=== PATIENT | female | born 1945 | race Caucasian/White ===

== ENCOUNTER 2016-07-30 07:36 | Day surgery (SDC) | payer MEDICARE, OTHER ==
--- NOTE | ~2016-07-30 | EGD ---
EGD REPORT [facility] [address] [place]. [id number] NAME: SANDRINE KABA : [birth year] [place]US : [place] [facility] [place] [id number] AGE: 71 ADM/REG DATE : 07/30/16 MR#: [id number] REPORT SERV DATE: 07/30/16 DICTATED BY: TOM TANNER DATE: 07/30/16 REPORT STATUS : Draft TRANSCRIBED BY: [facility] DATE: 07/30/16 Endoscopy Center Patient Name: Sandrine Kaba Date of : 1945 Attending MD: TOM TANNER MD Procedure Date No Time: 07/30/2016 Procedure: Colonoscopy Indications: High risk colon cancer surveillance: Personal history of non-advanced adenoma; last exam 2013. Patient Profile: Informed consent was obtained from the patient by me prior to the procedure. Risks, benefits, and alternatives were discussed including the risk of bleeding, perforation, infection, reaction to medicine, missed lesion, and cardiopulmonary complications. Medicines: Monitored Anesthesia Care Complications: No immediate complications. Procedure: Pre-Anesthesia Assessment: - ASA Grade Assessment: II - A patient with mild systemic disease. After I obtained informed consent, the scope was passed under direct vision. Throughout the procedure, the patient's blood pressure, pulse, and oxygen saturations were monitored continuously. The CF [id number] was introduced through the anus and advanced to the cecum, identified by appendiceal orifice and ileocecal valve. The colon was long, tortuous, and redundant. The colonoscope was slowly withdrawn with careful examination all mucosal surfaces including specific attention around flexures and tip deflection behind folds; retroflexion performed in rectum. The colonoscopy was performed without difficulty. The patient tolerated the procedure well. The quality of the bowel preparation was adequate. The ileocecal valve, appendiceal orifice and rectum were photographed. CO2 utilized. Findings: A sessile polyp was found in the rectum. The polyp was 5 mm in size. The polyp was removed with a cold biopsy forceps. Resection and retrieval were complete. Internal hemorrhoids were found, and they were mild. A few small-mouthed diverticula were found in the sigmoid colon. Impression: - One 5 mm polyp in the rectum. Resected and retrieved. - Internal hemorrhoids. - Diverticulosis in the sigmoid colon. EGD REPORT [address] [address] NAME: SANDRINE KABA : [birth year] STATUS : REG [facility]#: [id number] AGE: 71 ADM/REG DATE : 07/30/16 MR#: [id number] REPORT SERV DATE: 07/30/16 DICTATED BY: TOM TANNER DATE: 07/30/16 REPORT STATUS : Draft [facility]IB[facility] BY: [facility] DATE: 07/30/16 Recommendation: - Patient has a contact number available for emergencies. The signs and symptoms of potential delayed complications were discussed with the patient. Return to normal activities tomorrow. Written discharge instructions were provided to the patient. - Regular diet. - Continue present medications. - Await pathology results. - Repeat colonoscopy for surveillance based on pathology results. Procedure Code(s): --- Professional --- 31103, Colonoscopy, flexible, proximal to splenic flexure; with biopsy, single or multiple Diagnosis Code(s): --- Professional --- K62.1, Rectal polyp K64.8, Other hemorrhoids K57.30, Diverticulosis of large intestine without perforation or abscess without bleeding Z86.010, Personal history of colonic polyps CPT copyright 2013 [employer]. All rights reserved. The codes documented in this report are preliminary and upon creative project manager review may be revised to meet current compliance requirements. TOM TANNER MD 07/30/2016 9:51 AM This report has been signed electronically. Number of Addenda: 0 Note Initiated On: 07/30/2016 8:59 AM Scope Withdrawal Time 0 hours 11 minutes 34 seconds [id number] [id number]
[~2016-07-30 07:36] MED LIST: ACYCLOVIR OINTMENT TOP; ASAB PO; BONIVA150 MG PO; CADUET10 MG/40 M PO; COZ50 PO; KLONO5 PO; LIPITOR20 PO; MIRALAX POWDER1 PKT PO; MULTIPLE VIT PO; PROBIOTIC PO; [UNRECOGNIZED DRUG - REMARK] PO
== END 2016-07-30 23:59 | disposition home health service (06) ==
LOC: DMU 07:36
PROVIDERS: Internal Medicine Gastroenterology
PROC: 0DBP8ZX Excision of Rectum, Via Natural or Artificial Opening Endoscopic, Diagnostic (ICD-10-PCS; principal; 2016-07-30 09:00)
DX: Z12.11 Encounter for screening for malignant neoplasm of colon (principal); K62.1 Rectal polyp; K64.8 Other hemorrhoids; K57.30 Diverticulosis of large intestine without perforation or abscess without bleeding; I10 Essential (primary) hypertension; E78.00 Pure hypercholesterolemia, unspecified; K21.9 Gastro-esophageal reflux disease without esophagitis; F32.9 Major depressive disorder, single episode, unspecified; Z86.010 Personal history of colon polyps; Z88.0 Allergy status to penicillin; Z88.8 Allergy status to other drugs, medicaments and biological substances; Z79.899 Other long term (current) drug therapy; M19.90 Unspecified osteoarthritis, unspecified site; M85.80 Other specified disorders of bone density and structure, unspecified site; Z90.49 Acquired absence of other specified parts of digestive tract; Z98.890 Other specified postprocedural states; Z98.51 Tubal ligation status
CPT/HCPCS: 88305